=== PATIENT | male | born 2000 | race Caucasian/White ===

== ENCOUNTER 2022-02-05 19:09 | Emergency (ER) | payer OTHER ==
[~2022-02-05] VITALS: Ht 182.9 cm; Wt 85.7 kg
[2022-02-05 19:26] VITALS: BP 120/61
[2022-02-05] MEDS ORDERED: IBUPROFEN 600 MG TAB PO ONE (19:55)
[2022-02-05] MEDS ORDERED: ACETAMINOPHEN EXTRA STRENGTH 500 MG TAB PO ONE (19:55)
--- NOTE | 2022-02-05 20:01 | NUR ---
21 Y/O MALE BIBS FROM HOME, C/O LOWER BACK PAIN X2 MO. PT STATES HE HAS CONSTANT PAIN IN HIS LEFT POSTERIOR HIP THAT RADIATES DOWN HIS LEFT LEG. PAIN IS 7/10 AND INCREASES IF HE LAYS SUPINE. PT HAS BEEN SEEKING PROFESSIONAL HELP WITH MINIMAL RELIEF. CMS INTACT, DENIES N/V/D, UNLABORED BREATHING, AMBULATORY WITH UNTEADY GAIT. PT STATES MUSCLE RELAXERS DO NOT WORK. DENIES PMH/RX NKA
[2022-02-05] MEDS ORDERED: CYCL-711 PO (20:38)
[2022-02-05] MEDS ORDERED: ACET-10509 PO (20:38)
[2022-02-05] MEDS ORDERED: GABA300C PO (20:38)
[2022-02-05] MEDS ORDERED: IBUP-2213 PO (20:38)
[2022-02-05] MEDS ORDERED: GABAPENTIN 300 MG CAP PO ONE (20:40)
[2022-02-05] MEDS ORDERED: CYCLOBENZAPRINE 10 MG TAB PO ONE (20:40)
[2022-02-05 21:23] VITALS: BP 120/61
--- NOTE | 2022-02-05 21:24 | NUR ---
Patient discharged with v/s stable. Written and verbal after care instructions given and explained. Patient alert, oriented and verbalized understanding of instructions. Ambulatory with steady gait. All questions addressed prior to discharge. ID band removed. Patient advised to follow up with PMD. Rx of ACETAMINOPHEN, FLEXERIL, NEURONTIN, AND IBUPROFEN given. Patient educated on indication of medication including possible reaction and side effects. Opportunity to ask questions provided and answered. A/OX4, VSS, UNLABORED BREATHING, AMBULATORY WITH CANE, AND CALM DEMEANOR.
== END 2022-02-05 21:24 | disposition home or self-care (01) ==
LOC: MED 19:09
DX: M54.42 Lumbago with sciatica, left side (principal); Z79.899 Other long term (current) drug therapy
CPT/HCPCS: 99284